=== PATIENT | male | born 1995 | race Caucasian/White ===

== ENCOUNTER 2017-07-05 10:11 | Emergency (ER) | payer OTHER ==
[~2017-07-05] VITALS: Ht 157.4 cm; Wt 52.2 kg
[~2017-07-05 10:11] MED LIST: AMOXICILLIN500 M3 PO; AMOXIL250 MG/5 M PO; ATIVAN1 MG PO; AUGMENTIN 400 M1 CTB PO; AUGMENTIN 875-875 MG PO; BENADRYL12.5 MG/5 PO; BENZOYL PEROXI TP; CIPRO250 MG PO; CLARITIN10 MG PO; CONCERTA27 MG PO; CONCERTA54 MG PO; CYCLOBENZAPRINE5 MG PO; INTUNIV1 MG PO; MEDROL DOSEPAK4 MG PO; METHYLPHENID; MOTRIN400 MG PO; Motrin,Rufen800 MG PO; OMNICEF300 MG PO; PANTOPRAZOLE SO40 MG PO; PROTONIX IV40 MG IV; PROTONIX20 MG PO; PROTONIX40 MG PO; SEROQUEL50 MG PO; TYLENOL W/CODEI1 TA4 PO; ZOFRAN ODT4 MG SL
[2017-07-05 10:18] VITALS: BP 118/67
[2017-07-05] MEDS ORDERED: MOBIC7.5 MG PO (12:22)
== END 2017-07-05 12:26 | disposition home or self-care (01) ==
LOC: ED 10:11
DX: M25.421 Effusion, right elbow (principal); Z91.030 Bee allergy status; Z88.8 Allergy status to other drugs, medicaments and biological substances

== ENCOUNTER 2018-10-01 17:15 | Emergency (ER) | payer OTHER ==
[~2018-10-01] VITALS: Ht 160 cm; Wt 54.4 kg
[~2018-10-01 17:15] MED LIST changes: +MOBIC7.5 MG PO
[2018-10-01 17:18] VITALS: BP 123/79
== END 2018-10-01 18:19 | disposition home or self-care (01) ==
LOC: ED 17:15
DX: S71.111A Laceration without foreign body, right thigh, initial encounter (principal); K21.9 Gastro-esophageal reflux disease without esophagitis; Z91.030 Bee allergy status; Z91.048 Other nonmedicinal substance allergy status; W29.8XXA Contact with other powered hand tools and household machinery, initial encounter; Y93.89 Activity, other specified; Y92.89 Other specified places as the place of occurrence of the external cause; Y99.8 Other external cause status

== ENCOUNTER 2020-10-05 09:59 | Emergency (ER) | payer OTHER | END 2020-10-05 10:40 | disposition left against medical advice (07) | LOC: ED 10:08 | DX: T50.901A Poisoning by unspecified drugs, medicaments and biological substances, accidental (unintentional), initial encounter (principal); Z53.21 Procedure and treatment not carried out due to patient leaving prior to being seen by health care provider; Y92.89 Other specified places as the place of occurrence of the external cause ==

== ENCOUNTER 2022-10-06 18:23 | Emergency (ER) | payer OTHER ==
[~2022-10-06] VITALS: Ht 160 cm; Wt 52.2 kg
[2022-10-06 18:41] VITALS: BP 128/77
[2022-10-06 19:14] LABS: BASO % 0.3 % (0.0-1.0); EOS # 0.2 10*3/uL (0.0-0.4); HEMATOCRIT 46.6 % (42.0-52.0); LYMPH # 1.7 10*3/uL (1.3-4.4); LYMPH % 18.2 % (27.0-41.0); MEAN CELL VOLUME 88.3 fl (80.0-94.0); MEAN CORPUSCULAR HGB 30.5 pg (27.0-31.0); MEAN CORPUSCULAR HGB CONC 34.5 g/dl (33.0-37.0); MEAN PLATELET VOLUME 9.7 fl (9.6-12.3); MONO # 0.5 10*3/uL (0.1-1.0); MONO % 5.3 % (3.0-9.0); NEUT # 6.7 10*3/uL (2.3-7.9); NEUT % 74.1 % (47.0-73.0); PLATELET COUNT AUTOMATED 305 10*3/uL (130-400); RED BLOOD COUNT 5.28 10*6/uL (4.50-5.90); RED CELL DISTRI WIDTH 12.8 % (0-14.5); WHITE BLOOD COUNT 9.1 10*3/uL (4.8-10.8)
[2022-10-06 19:28] LABS: ACT PARTIAL THROMBO TIME 29.1 SECONDS (20.0-32.1)
[2022-10-06 20:13] LABS: ALKALINE PHOSPHATASE 77 U/L (46-116); BUN 12 mg/dl (9-23); CHLORIDE 106 mmol/L (98-107); LIPASE 61 U/L (12-53); POTASSIUM 3.7 mmol/L (3.4-5.1); SGPT/ALT 21 U/L (10-49); TOTAL PROTEIN 7.1 gm/dL (6.0-8.0)
== END 2022-10-06 21:56 | disposition home or self-care (01) ==
LOC: ED 18:23
PROVIDERS: Internal Medicine
DX: K59.00 Constipation, unspecified (principal); R10.84 Generalized abdominal pain; Z91.030 Bee allergy status; Z91.048 Other nonmedicinal substance allergy status